=== PATIENT | female | born 1955 | race Caucasian/White ===

== ENCOUNTER 2018-11-13 06:08 | Day surgery (SDC) | payer SELFPAY ==
--- NOTE | 2018-11-07 13:29 | Pre-Procedure Note/Attestation ---
Pre-Procedure Note/Attestation Complete Prior to Procedure Planned Procedure: bilateral Procedure Narrative: Facelift Indications for Procedure Pre-Operative Diagnosis: Dermatochalasis of face Attestation I attest that I discussed the nature of the procedure; its benefits; risks and complications; and alternatives (and the risks and benefits of such alternatives ), prior to the procedure, with the patient (or the patient's legal printing supplies sales representative). I attest that, if there was a reasonable possibility of needing a blood transfusion, the patient (or the patient's legal printing supplies sales representative) was given the [facility] standardized written summary, pursuant to the Naveen Megan Blood Safety Act ([place] Health and Safety Code # 1645, as amended). I attest that I re-evaluated the patient just prior to the surgery and that there has been no change in the patient's H&P. Alonzo Aguilar MD Nov 07, 2018 13:29
--- NOTE | 2018-11-07 13:30 | Brief Operative Note ---
Immediate Post Operative Note Operative Note Chief Complaint: Cosmetic Pre-op Diagnosis: Dermatochalasis of face Procedure: Facelift/Rhytidectomy Post-op Diagnosis: same as pre-op Surgeon: Alonzo Aguilar Celluloid Trimmer: none Additional Surgeons: none Anesthesiologist: Anshul Anesthesia: general Specimen: yes - gross-excess facial skin Complications: none Condition: stable Fluids: D5LR Estimated Blood Loss: volume - 50 cc Drains: lamont - submental Packing: none Implant(s) used?: No Alonzo Aguilar MD Nov 07, 2018 13:30
--- NOTE | 2018-11-07 13:39 | Discharge Instructions ---
Discharge Instructions Discharge Instructions Follow up with: Dr. Aguilar at his offcie tomorrow 11/14/2018 Diet: regular Resume Normal Activity?: No Activity: light activity Pneumonia Vaccine: pt refused vaccine Influenza Vaccine (Jul to Dec): pt refused vaccine Follow Up Orders Pt. has printed instructions for post op care which we reviewed and I gave her during her pre op visit in the office on 11/06/18. She also received Rx for Ceftin and Macdoel post op. Return to Work/School on: Nov 27, 2018 For Surgical Patients May shower: No For Congestive Heart Failure Reminder Report to your physician any weight gain of 5 pounds or more in one week. Alonzo Aguilar MD Nov 07, 2018 13:39
--- NOTE | 2018-11-12 20:24 | General Progress Note ---
Progress Note Progress Note Please add to H/P pt has some scolosis. Alonzo Aguilar MD Nov 12, 2018 20:24
--- NOTE | 2018-11-12 20:24 | History & Physical ---
History of Present Illness General Date patient seen: Nov 06, 2018 Time patient seen: 11:00 Reason for Hospitalization: Outpt facelift Present Illness Allergies: Coded Allergies: No Known Allergies (Verified Allergy, Mild, 12/17/07) Medication History Scheduled PRN Hydrocodone Bit/Acetaminophen 5-325* ([place] 5-325*), 1 TAB ORAL Q6H PRN Patient History History Provided By: Patient Healthcare decision maker patient Resuscitation status full code Advanced Directive on File unknown Patient History Narrative pt is basically as 63 yo healthy female in menopause controlled with HRT who is have a facelift. Did have her eyes done cosmetically by in in 2007. Past Medical/Surgical History Past Medical/Surgical History: (1) H/O blepharoplasty (2) Menopasue Review of Systems Review of Symptoms General ROS: no weight loss or fever Psychological ROS: no depression or mood changes, no memory loss Ophthalmic ROS: no visual changes or eye irritation ENT ROS: no nasal congestion, hearing loss, dizziness Allergy and Immunology ROS: no allergic symptoms or urticaria Hematological and Lymphatic ROS: no swollen glands, unusual bleeding or bruising Endocrine ROS: no polyuria, polydipsia, weight changes, temperature intolerance Respiratory ROS: no cough, shortness of breath, or wheezing Cardiovascular ROS: no chest pain or dyspnea on exertion Gastrointestinal ROS: denies abdominal pain, bright red blood in stool. Musculoskeletal ROS: no myalgias or arthralgias Neurological ROS: no TIA or stroke symptoms Dermatological ROS: no new or changing skin lesions, rashes or pruritis Physical Exam Physical Exam General appearance: alert, cooperative, no distress, appears stated age Head: Normocephalic, without obvious abnormality, atraumatic Eyes: conjunctivae/corneas clear. PERRL, EOM's intact. Fundi benign Throat: Lips, mucosa, and tongue normal. Teeth and gums normal Neck: supple, symmetrical, trachea midline, no adenopathy, thyroid: not enlarged, symmetric, no tenderness/mass/nodules, no carotid bruit and no JVD Lungs: clear to auscultation bilaterally Heart: regular rate and rhythm, S1, S2 normal, no murmur, click, rub or gallop Abdomen: soft, non-tender. Bowel sounds normal. No masses, no organomegaly Extremities: extremities normal, atraumatic, no cyanosis or edema Pulses: 2+ and symmetric Skin: Skin color, texture, turgor normal. No rashes or lesions Neurologic: Grossly normal BP 115/78, HR 62 Resp 12 Will be NPO from [place] 11/13/18 until after surgery. Labs were done by Kelsy Becerra and sent to [facility] pre op after review by me. K was high, repeated and then was OK>. none Height (Feet): 5 Height (Inches): 1.5 Weight (Pounds): 135 Medications Current Medications Medications (Trade) Dose Ordered Sig/Radha Route PRN Reason Start Time Stop Time Status Last Admin Dose Admin Cefazolin Sodium 1 gm/Dextrose 55 ml @ 110 mls/hr ONCE ONCE IV 11/13/18 07:15 11/13/18 07:44 Dexamethasone Sodium Phosphate (Decadron 4mg/ml vial) 8 mg ONCE ONCE IVP 11/13/18 07:30 11/13/18 07:31 Objective Narrative Face: dermatochalasis Neck: no masses Ears: WNL Nose: WNL Eyes: RAZ, EOMI Abd: soft non-tender, normoactive BS Cheast: clear to A/P Breast and exam: not done by me-is done by her [employer] and PMD Ext: Grossly normal Neur: 2-12 grossly normal Assessment/Plan Status Narrative Dermatochalasis of face and neck Assessment/Plan Candidate for outpt. facelift. [facility] Hospital declaration INPATIENT This is not an inpt. . OBSERVATION level of care is warranted for this patient. Patient is a 63 year old who will have an outpt. facelift. Disposition: Once the patient is stable to leave the hospital, I anticipate the patient will likely be discharged to the following environment:home Estimated discharge date: 11/13/18 I spent 70 minutes on this patient's case, and minutes was dedicated to counseling and/or care coordination. MIPS ([employer]-based Incentive Payment System) Applicable CPT: 81697, 70899 CHECK ALL THAT ARE MET: This is a [facility] outpt. Alonzo Aguilar MD Nov 12, 2018 20:24
[2018-11-13] VITALS (15 sets, daily range): BP systolic 101–131; BP diastolic 49–77
[~2018-11-13] VITALS: Ht 160 cm; Wt 59.4 kg
[~2018-11-13 06:08] MED LIST: NORCO 5-325 TA1 EACH ORAL
[2018-11-13] MEDS ORDERED: NS Irrig 1000ml ONE (06:09)
[2018-11-13] MEDS ORDERED: Sterile Water Irrig 1000ml IRRIG ONE (06:09)
[2018-11-13] MEDS ORDERED: LR 1000ml ONE (06:09)
[2018-11-13] MEDS ORDERED: Bupivacaine 0.5% 10ml INJ ONE (07:11)
[2018-11-13] MEDS ORDERED: Lidocaine 1% 10mg/ml/Epi 0.005mg/ml 30ml vial INJ ONE (07:12)
--- NOTE | 2018-11-13 07:13 | Anethesia Preoperative Eval ---
Anesthesia Pre-op PMH/ROS General Date of Evaluation: Nov 13, 2018 Anesthesiologist: Anshul ASA Score: ASA 1 Mallampati Score Class I : Soft palate, uvula, fauces, pillars visible Class II: Soft palate, uvula, fauces visible Class III: Soft palate, base of uvula visible Class IV: Only hard plate visible Mallampati Classification: Class II Surgeon: Lauren Diagnosis: Cosmetic Surgical Procedure: Facelift Anesthesia History: none Family History: no anesthesia problems Allergies: Coded Allergies: No Known Allergies (Verified Allergy, Mild, 12/17/07) Medications: see eMAR Patient NPO?: Yes NPO Date: Nov 13, 2018 Past Medical History Cardiovascular: Denies: HTN, CAD, VT, valve dz, arrhythmia, other Pulmonary: Denies: asthma, COPD, BENNETT, other Gastrointestinal/Genitourinary: Denies: GERD, CRI, ESRD, other Neurologic/Psychiatric: Denies: dementia, CVA, depression/anxiety, TIA, other Endocrine: Denies: DM, hypothyroidism, steroids, other HEENT: Denies: cataract (L), cataract (R), glaucoma, AKIAK (L), AKIAK (R), other Hematology/Immune: Denies: anemia, DVT, bleeding disorder, other Musculoskeletal/Integumentary: Denies: OA, RA, DJD, DDD, edema, other PSxH Narrative: bilateral blepharoplasty, acl sx Anesthesia Pre-op Phys. Exam Physician Exam see chart Constitutional: NAD Cardiovascular: RRR Respiratory: CTA Airway Exam Mallampati Score: Class II MO: full ROM: full Teeth: intact Anesthesia Pre-op A/P Labs see chart Studies Pre-op Studies: EKG - sr Risk Assessment & Plan Assessment: ASA I Plan: GA Status Change Before Surgery: No Pre-Antibiotics Drug: Ancef 1g Given Within 1 Hr of Incision: Yes Gali Hinton MD Nov 13, 2018 07:13
[2018-11-13] MEDS ORDERED: ceFAZolin sod 1 GM in D5W 55 ML IV ONE (07:15)
[2018-11-13] MEDS ORDERED: Zemuron 50mg/5ml Inj IV ONE (07:23)
[2018-11-13] MEDS ORDERED: Lidocaine 1% MPF 10mg/ml 5ml ONE (07:24)
[2018-11-13] MEDS ORDERED: Propofol 200mg/20ml IV ONE (07:24)
[2018-11-13] MEDS ORDERED: fentaNYL 100 mcg/2 mL IV ONE (07:25)
[2018-11-13] MEDS ORDERED: Midazolam 2mg/2ml Inj ONE ×2 (07:25→08:43)
[2018-11-13] MEDS ORDERED: Dexamethasone 4mg/ml vial IVP ONE (07:30)
[2018-11-13] MEDS ORDERED: Bacitracin Oint 15gm Tube TOPIC ONE (07:59)
[2018-11-13] MEDS ORDERED: LR 1000ml 1,000 ML IVLG SCH (08:05)
[2018-11-13] MEDS ORDERED: Metoclopramide 10mg/2ml Inj IVP PRN ×2 (08:15→11:15)
[2018-11-13] MEDS ORDERED: fentaNYL 100 mcg/2 mL IV PRN (08:15)
[2018-11-13] MEDS ORDERED: LORazepam Inj 2mg/ml 1ml IV PRN (08:15)
[2018-11-13] MEDS ORDERED: Hydromorphone 0.5mg/0.5ml inj IVP PRN (08:15)
[2018-11-13] MEDS ORDERED: Midazolam 2mg/2ml Inj IVP PRN (08:15)
[2018-11-13] MEDS ORDERED: DiphenhydrAMINE 50mg/ml Inj IVP PRN (08:15)
--- NOTE | 2018-11-13 11:07 | Immediate Post-Op Evaluation ---
Immediate Post-Op Evalulation Immediate Post-Op Evalulation Procedure: Facelift Date of Evaluation: Nov 13, 2018 Time of Evaluation: 11:04 IV Fluids: 1.4L Blood Products: 0 Estimated Blood Loss: 50 Urinary Output: 0 Blood Pressure Systolic: 101 Blood Pressure Diastolic: 49 Pulse Rate: 73 Respiratory Rate: 16 O2 Sat by Pulse Oximetry: 96 Temperature (Fahrenheit): 97.7 Pain Score (1-10): 0 Nausea: No Vomiting: No Complications 0 Patient Status: awake, reacts, patent, none Hydration Status: adequate Drug: Ancef 1g Given Within 1 Hr of Incision: Yes Gali Hinton MD Nov 13, 2018 11:07
--- NOTE | 2018-11-13 11:10 | 48 Hour Post Anesthesia Eval ---
Post Anesthesia Evaluation Procedure: Facelift Date of Evaluation: Nov 13, 2018 Airway: patent Nausea: No Vomiting: No Pain Intensity: 0 Hydration Status: adequate Cardiopulmonary Status: at baseline Mental Status/LOC: patient returned to baseline Post-Anesthesia Complications: 0 Follow-up care needed: ready to discharge Gali Hinton MD Nov 13, 2018 11:10
[2018-11-13] MEDS ORDERED: Norco 5mg/325mg tab ORAL PRN (11:15)
[2018-11-13] MEDS ORDERED: HYDROmorphone 1mg/ml Carpuject SUBQ PRN (11:15)
[2018-11-13] MEDS ORDERED: Naloxone 0.4mg/ml Inj IVP SCH (12:00)
--- NOTE | 2018-11-13 21:15 | Operative Note - Dictated ---
DATE OF OPERATION: 11/13/2018 SURGEON: Alonzo Aguilar M.D. JUNIOR ADMINISTRATIVE ASSISTANT: None. ANESTHESIOLOGIST: Dr. Landers. ANESTHESIA: A 35 mL of 1% lidocaine with 1:100,000 epinephrine and Marcaine 0.5% with 1:200,000 epinephrine. INDICATION FOR SURGERY: Cosmetic dermatochalasis of the face. PREOPERATIVE DIAGNOSIS: Cosmetic dermatochalasis of the face.. POSTOPERATIVE DIAGNOSIS: Cosmetic dermatochalasis of the face.. FINDINGS: Cosmetic dermatochalasis of the face.. PROCEDURE: Facelift with submental. TECHNIQUE: The patient prepped and draped in usual manner. Time-out was performed. All agreed as to the equipment and procedures to be done. I injected initially 15 mL with the aforementioned lidocaine, Marcaine, and epinephrine mixture on either side of the face. Later on in the case, I freshened up the right side and then the submental area. I made an incision anterior to the tragus and underneath the auricle, utilizing a #15 blade. I used the existing lines and fold in the skin. I then elevated with a small Metzenbaum scissors, developed , removed some tissue anterior to the tragus, but above this mass . I then proceeded to irrigate with Betadine. I then proceeded on the left side to grasp since mass coming off the platysma superficially with a 4-0 Mersilene and tied this to the mastoid. I then did the same in the jaw area and then mid face. Once these were sutured, I then cut the excess skin and placed a layer of 4-0 plain suture and then a running 6-0 Prolene anteriorly and running 5-0 Prolene posteriorly. The same exact procedure was followed on the right side. I then approached the submental area. She had an existing scar, this was cut out, elevated down, finding the anterior borders of the platysma. These were then tied together and some fat was cauterized. I then placed a [place] drain and closed with a 4-0 plain suture deep and a 6-0 Prolene superficially. Tissue glue was placed over all incisions. Antibiotic ointment, Telfa, cotton, and then a netting and then tape was placed over this to keep everything in place. Sponge and needle counts correct. EBL 50 mL. Counts, none. Drains, none. The patient was awake and alert, and stable in the operating room after extubation and in the recovery room 20 minutes later. I spoke with her at approximately 5:30 p.m. She was doing okay. She did mention that her left eyelid was heavy and felt scratchy. I did discuss with her that we will take a look at it tomorrow, but that we did not do any surgery in that area nor did approach any facial nerves, so I am hoping that it is just some of the left over Marcaine that may have affected the nerves, although nothing was placed above the tragus and nothing was done in forehead area or even the upper part of the auricle. Alonzo Aguilar M.D. DR: AMINA JOB#: [id number] CC:
[2018-11-14] MEDS ORDERED: PROVERA2.5 MG ORAL (10:12)
[2018-11-14] MEDS ORDERED: ESTRACE1 MG ORAL (10:12)
[2018-11-14] MEDS ORDERED: OMEGA PO (10:13)
[2018-11-14] MEDS ORDERED: MULTI VITAMIN1 EACH ORAL (10:14)
[2018-11-14] MEDS ORDERED: CALCIUM CARBON500 M1 PO (10:14)
[2018-11-14] MEDS ORDERED: Vit E PO (10:15)
[2018-11-14] MEDS ORDERED: VITAMIN C500 M1 ORAL (10:18)
== END 2018-11-13 14:00 | disposition home or self-care (01) ==
LOC: SUR 06:08
DX: L98.7 Excessive and redundant skin and subcutaneous tissue (principal); M41.9 Scoliosis, unspecified
CPT/HCPCS: 15825; J0690; J1170; J2250; J2310; J2704; J3010; J3490; 94003; 94150